=== PATIENT | male | born 1950 | race Two or more races ===

== ENCOUNTER → 2018-02-04 | Outpatient (CLI) | payer MEDICARE | END | disposition home or self-care (01) | LOC: OIH 10:47 | PROVIDERS: ATTEND Internal Medicine | DX: I10 Essential (primary) hypertension (principal) | CPT/HCPCS: 71046 ==

== ENCOUNTER 2020-05-16 15:34 | Inpatient (IN) | payer MEDICARE ==
[~2020-05-16] VITALS: Ht 170.2 cm; Wt 850.5 kg
[2020-05-16 15:55] LABS: BASOPHILS % (AUTO) 0.1 % (0.0-5.0); LYMPHOCYTES % (AUTO) 6.3 % (21.0-51.0); MEAN CORPUSCULAR HEMOGLOBIN 27.6 pg (27.0-33.0); MEAN CORPUSCULAR HGB CONC 32.5 g/dL (32.0-36.0); MEAN CORPUSCULAR VOLUME 84.9 fL (79-99); MONOCYTES % (AUTO) 4.1 % (3.0-13.0); NEUTROPHILS % (AUTO) 89.2 % (40.0-77.0); PLATELET COUNT (AUTO) 263 K/uL (130-400); RED BLOOD CELL COUNT(AUTO) 4.71 MIL/uL (4.50-6.20); RED CELL DISTRIBUTION WIDTH 13.8 % (11.0-15.5); WHITE BLOOD COUNT (AUTO) 11.8 K/uL (4.8-10.8)
[2020-05-16 16:16] LABS: CREATININE 1.2 mg/dL (0.5-1.5); INR 1.06 (0.85-1.15); POTASSIUM 4.1 mmol/L (3.5-5.1); PROTHROMBIN TIME 11.3 SEC (9.6-11.6)
[2020-05-16 16:17] LABS: PARTIAL THROMBOPLASTIN TIME 24.5 SEC (26.3-35.5)
[2020-05-16] MEDS ORDERED: ASPIRIN 325 MG TABLET ONE (16:21)
[2020-05-16 16:23] LABS: ALBUMIN 3.8 g/dL (3.5-5.0); BILIRUBIN,TOTAL 0.3 mg/dL (0.2-1.0); TOTAL PROTEIN, SERUM 7.5 g/dL (6.0-8.3)
[2020-05-16] MEDS ORDERED: ONDANSETRON HCL 4 MG/2 ML VIAL ONE (22:11)
[2020-05-16] MEDS ORDERED: HYDROMORPHONE HCL 0.5 MG/0.5 ML ML ONE (22:11)
[2020-05-16 22:45] VITALS: BP 125/67
[2020-05-16] MEDS ORDERED: DEXTROSE 50%-WATER 50 ML DISP.SYRIN IV PRN (22:45)
[2020-05-16] MEDS ORDERED: GLUCAGON 1MG KIT 1 MG ML IM PRN (22:45)
[2020-05-16] MEDS ORDERED: METF-446 PO (22:56)
[2020-05-16] MEDS ORDERED: METF-444 PO (23:42)
[2020-05-16] MEDS ORDERED: ACET1TAB25 PO (23:42)
[2020-05-16] MEDS ORDERED: LISI40TA4 PO (23:42)
[2020-05-16] MEDS ORDERED: ATEN50TA PO (23:42)
[2020-05-17] MEDS ORDERED: ACETAMINOPHEN 325 MG TAB PO PRN (01:15)
[2020-05-17] MEDS ORDERED: HYDROMORPHONE HCL 2 MG/ML VIAL IVP PRN (01:15)
[2020-05-17] MEDS ORDERED: ONDANSETRON HCL 4 MG/2 ML VIAL IVP PRN (01:15)
[2020-05-17 03:56] VITALS: BP 143/77
[2020-05-17] MEDS: INSULIN HUMULIN R 100 UNIT/ML 3ML SQ SCH ×2 (05:33→11:30)
[2020-05-17 06:13] LABS: HEMATOCRIT 36.9 % (42-54); MEAN CORPUSCULAR HEMOGLOBIN 27.6 pg (27.0-33.0); MEAN CORPUSCULAR VOLUME 86.2 fL (79-99); PLATELET COUNT (AUTO) 254 K/uL (130-400); RED BLOOD CELL COUNT(AUTO) 4.28 MIL/uL (4.50-6.20); RED CELL DISTRIBUTION WIDTH 13.9 % (11.0-15.5); WHITE BLOOD COUNT (AUTO) 8.6 K/uL (4.8-10.8)
[2020-05-17 06:29] LABS: MAGNESIUM 2.1 mg/dL (1.80-2.40); POTASSIUM 4.1 mmol/L (3.5-5.1)
--- NOTE | 2020-05-17 07:15 | NUR ---
ASSESSMENT PT IS IN BED AA/OX4, WAITING ON MRI, IS HAVING SLIGHT HEADACHE AT THIS TIME. PT NEURO CHECKS: EVERYTHING SYMMETRICAL, RT SIDE EFFECTED, STRENGTH IS WEAKER ON THE RIGHT. PT, DOES WALK BUT NEEDS ASSISTS X 1 D/T POOR COORDINATION. PT JANIYA ANY CP, SOB, N/V AT THIS TIME. DR. MONTE IS TO SEE PATIENT TODAY.
[2020-05-17 07:48] LABS: BASOPHILS % (MANUAL) 1 % (0-2); LYMPHOCYTES % (MANUAL) 32 % (22-44); MAN.DIFF COMMENT-IMPRESSION MANUAL DIFFERENTIAL; MONOCYTES % (MANUAL) 7 % (2-9); PLATELET MORPHOLOGY COMMENT ADEQUATE; REACTIVE LYMPHOCYTES 3 % (0-0); SEGMENTED NEUTROPHILS % 57 % (40-70)
--- NOTE | 2020-05-17 07:59 | NUR ---
FABIENNE COOKUBALDO KONG PT WAS GIVEN 3 TSP OF WATER WITH NO PROBLEMS, FOLLOWED BY APPLE SAUCE. PT WAS ABLE TO SWALLOW WITHOUT JAKE DIFFICULTY, GAVE PT CLEAR LIQUIDS FOR BREAKFAST.
[2020-05-17 08:00] VITALS: BP 141/91
[2020-05-17 09:00] LABS: BILIRUBIN,URINE Negative (NEGATIVE); COLOR,URINE Yellow (YELLOW); GLUCOSE, URINE (UA) Negative (NEGATIVE); KETONES,URINE Negative (NEGATIVE); LEUKOCYTE ESTERASE ,URINE Negative (NEGATIVE); NITRATE,URINE Negative (NEGATIVE); OCCULT BLOOD,URINE Large (NEGATIVE); PROTEIN,URINE Negative (NEGATIVE); UROBILINOGEN,URINE 0.2 mg/dL (0.2-1.0)
--- NOTE | 2020-05-17 09:11 | NUR ---
DR. LAVELL MONTE CAME TO SEE PT. AT BEDSIDE, NEW ORDER IS TO CONSULT OK GROUP FOR RT. STOKE CEREBELLUM.
[2020-05-17 09:14] LABS: APPEARANCE,URINE CLEAR (CLEAR)
[2020-05-17 09:33] LABS: BACTERIA,URINE Rare /HPF (None Seen); RBC,URINE 26-50 /HPF (0-1); SQUAMOUS EPITHELIAL CELL,UR Rare /HPF (0-2); WBC,URINE 0-1 /HPF (0-1)
--- NOTE | 2020-05-17 09:57 | NUR ---
DR. BRITTNY MART WAS INFORMED OF CONSULT AND WILL SEE PT TODAY.
--- NOTE | 2020-05-17 10:38 | NUR ---
HOLD DR. MART IN ROOM AT THIS TIME, STATED HE WANTED Pt TO REMAIN NPO AT THIS TIME FOR POSSIBLE PROCEDURE TODAY. [employer] TO COMPLETED DYSPHAGIA EVAL AT A LATER TIME. Addendum: 05/17/20 at 1039 by THIERNO HAIDER, SPT ST Amended: Links added.
--- NOTE | 2020-05-17 10:46 | NUR ---
DR. BRITTNY MART CAME TO SEE PT AT BEDSIDE,ORDERS ARE TO TRANSFER PT TO R IN [facility], AND KEEP NPO
--- NOTE | 2020-05-17 10:58 | NUR ---
paged dr rich WAITING WORKFORCE CONSULTANT BACK
--- NOTE | 2020-05-17 12:12 | NUR ---
ROUNDING PT IS IN BED AND ECHO IS BEING DONE AT THIS TIME. PT DOES STATES HE HAS A SLIGHT HEADACHE BUT NO NAUSEA. DR. MART AND LAVELL ARE AWARE OF HIS STATUS.
[2020-05-17 12:46] VITALS: BP 136/76
--- NOTE | 2020-05-17 13:25 | NUR ---
DR. NOMAN TINEO APPROVED FOR PATIENT GOING TO [facility] IN [facility] NEURO ICU. DR. TINEO IS COVERING FOR DR. SALGUERO
--- NOTE | 2020-05-17 13:49 | NUR ---
REPORT REPORT GIVEN TO MESFIN ALLISON RN, AT [facility], [phone]. PT IS GOING TO ROOM 308 IN NEURO ICU, ADMITTED BY DR. BHARAT REINOSO. CHART COPIED, WAITING ON AMBULANCE AND CLARENCE FROM HOUSE MAKING ARRANGEMENTS.
--- NOTE | 2020-05-17 15:41 | NUR ---
d/c PT IS AA/OX4, WITH NO C/O OF SOB, CP, NAUSEA, OR NEURO EXCEPT FOR SLIGHT HEADACHE THAT IS NOT A NEW SYMPTOM AND NEURO AWARE, VS STABLE. PT LEFT VIA AMBULANCE STABLE, NO COMPLICATIONS UPON D/C.
== END 2020-05-17 15:35 | disposition short-term general hospital (02) | DRG 66 ==
LOC: EDH 15:34 → EDHIP 20:01 → 3CH 22:45
PROVIDERS: ADMIT Family Medicine; ATTEND Family Medicine
DX: I63.9 Cerebral infarction, unspecified (principal); Z20.828 Contact with and (suspected) exposure to other viral communicable diseases; D64.9 Anemia, unspecified; D72.829 Elevated white blood cell count, unspecified; E11.9 Type 2 diabetes mellitus without complications; E78.5 Hyperlipidemia, unspecified; I10 Essential (primary) hypertension; Z96.653 Presence of artificial knee joint, bilateral; R29.704 NIHSS score 4; Z79.01 Long term (current) use of anticoagulants; R53.1 Weakness
CPT/HCPCS: 36415; 70450; 70544; 70551; 71045; 80048; 80053; 81001; 82550; 82948; 83690; 83735; 84484; 85025; 85610; 85730; 87426; 93005; 93306; 93356; 97039; G0378; J1170; J2405; U0003

== ENCOUNTER → 2020-12-29 | Outpatient (CLI) | payer MEDICARE ==
[~2020-12-29] MED LIST: ACET1TAB25 PO; ATEN50TA PO; LISI40TA9 PO; METF-444 PO
== END | disposition home or self-care (01) ==
LOC: OIH 10:49
PROVIDERS: ATTEND Internal Medicine
DX: J20.9 Acute bronchitis, unspecified (principal)
CPT/HCPCS: 71046